=== PATIENT | female | born 1990 | race Caucasian/White ===

== ENCOUNTER 2017-10-30 13:28 | Emergency (ER) | payer MEDICAID ==
[~2017-10-30] VITALS: Ht 167.6 cm; Wt 81.0 kg
[~2017-10-30 13:28] MED LIST: CEPH-571 PO; HYDR-569 PO; NICO-731 TP
[2017-10-30 13:36] VITALS: BP 116/71
[2017-10-30 14:06] LABS: URINE HCG NEGATIVE (NEG)
[2017-10-30 14:10] LABS: CLARITY,URINE CLOUDY (Clear); COLOR,URINE YELLOW (Yellow); GLUCOSE, URINE NEGATIVE (Neg); KETONES,URINE NEGATIVE (Neg); LEUKOCYTE ESTERASE ,URINE LARGE (Neg); NITRITES, URINE POSITIVE (Neg); OCCULT BLOOD,URINE SMALL (Neg); PH,URINE 5.5 (4.8-8.0); PROTEIN,URINE TRACE mg/dl (Neg); UROBILINOGEN,URINE 0.2 E.U/dL (0.2-1.0)
[2017-10-30 14:11] LABS: UA COLLECTION TYPE CLN CATCH MIDSTREAM
[2017-10-30 14:19] LABS: BACTERIA,URINE 4+ /HPF (Neg); MUCUS STRANDS MODERATE /LPF (Neg); RBC,URINE 0-2 /HPF (0-2); SQUAMOUS EPITHELIAL CELL,UR MODERATE /LPF (FEW); TRANSITIONAL EPI CELLS,URINE FEW /HPF; WBC,URINE 50-100 /HPF (0-4)
[2017-10-30] MEDS ORDERED: PHEN-716 PO (14:54)
[2017-10-30] MEDS ORDERED: NITR100C6 PO (14:54)
== END 2017-10-30 15:19 | disposition home or self-care (01) ==
LOC: ER 13:29
DX: N39.0 Urinary tract infection, site not specified (principal); F12.10 Cannabis abuse, uncomplicated; Z90.49 Acquired absence of other specified parts of digestive tract; Z87.440 Personal history of urinary (tract) infections; Z79.899 Other long term (current) drug therapy; Z91.048 Other nonmedicinal substance allergy status; Z56.0 Unemployment, unspecified
CPT/HCPCS: 81001; 81025; 87077; 87088; 87186; 99284

== ENCOUNTER 2018-02-23 08:31 | Emergency (ER) | payer MEDICAID ==
[~2018-02-23] VITALS: Ht 167.6 cm; Wt 78.7 kg
[~2018-02-23 08:31] MED LIST changes: +NITR100C6 PO; +PHEN-716 PO
[2018-02-23 08:57] VITALS: BP 105/59
[2018-02-23] MEDS ORDERED: PENI500T2 PO (10:52)
== END 2018-02-23 11:09 | disposition home or self-care (01) ==
LOC: ER 08:31
DX: K08.89 Other specified disorders of teeth and supporting structures (principal); F12.90 Cannabis use, unspecified, uncomplicated; Z90.49 Acquired absence of other specified parts of digestive tract; Z88.8 Allergy status to other drugs, medicaments and biological substances; Z79.899 Other long term (current) drug therapy; Z56.0 Unemployment, unspecified
CPT/HCPCS: 99283